=== PATIENT | male | born 2000 | race African-American/Black ===

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

== ENCOUNTER 2018-07-27 16:47 | Emergency (ER) | payer SELFPAY ==
[2018-07-27 17:21] VITALS: BP 124/72
[2018-07-27] MEDS ORDERED: AZITHROMYCIN 250 MG TABLET PO ONE (17:47)
[2018-07-27] MEDS ORDERED: CEFTRIAXONE INJ 250 MG VIAL IM ONE (17:47)
--- NOTE | 2018-07-27 17:53 | ER Document Report ---
HPI - HPI Time Seen by Provider: 07/27/18 17:38 Pain Level: 5 Notes: Patient is a 18-year-old male with no significant past medical history who presents to the emergency department complaining of burning with urination over the past 2 to 3 days and is sexually active. Denies drug allergies. He has not noticed any ulcers, discharge, or lesions/rash. He is eating and drinking without difficulty. He is having normal bowel movements. Denies any headache, fever, URI, sore throat, chest pain, palpitations, syncope, cough, shortness of breath, wheeze, dyspnea, abdominal pain, nausea/vomiting/diarrhea, urinary retention, or rash. - ROS Systems Reviewed and Negative: Yes All other systems reviewed and negative Past Medical History - Social History Smoking Status: Current Every Day Smoker Family History: Reviewed & Not Pertinent Pulmonary Medical History: Reports: Hx Asthma Renal/ Medical History: Denies: Hx Peritoneal Dialysis - Immunizations Immunizations up to date: Yes Hx Diphtheria, Pertussis, Tetanus Vaccination: Yes Vertical Provider Document - CONSTITUTIONAL Agree With Documented VS: Yes Notes: PHYSICAL EXAMINATION: GENERAL: Well-appearing, well-nourished and in no acute distress. LUNGS: Breath sounds clear to auscultation bilaterally and equal. No wheezes rales or rhonchi. HEART: Regular rate and rhythm without murmurs, rubs, gallops. ABDOMEN: Soft, nontender, nondistended abdomen. No guarding, no rebound. No masses appreciated. Normal bowel sounds present. No CVA tenderness bilaterally. : No obvious lesion, ulceration, or rash. No erythema or necrosis. No swelling. No obvious hernia or lymphadenopathy. + urethral discharge (white color). No testicular/penile tenderness to palp. No transverse lie. Cremasteric intact. Extremities: No cyanosis, clubbing, or edema b/l. NEUROLOGICAL: Normal speech, normal gait. PSYCH: Normal mood, normal affect. SKIN: Warm, Dry, normal turgor, no rashes or lesions noted. - INFECTION CONTROL TRAVEL OUTSIDE OF THE [place] IN LAST 30 DAYS: No Course - Re-evaluation Re-evalutation: 07/27/18 Patient is an afebrile, well-hydrated, 18-year-old male who presents with urethral discharge and dysuria, possible STD. Vitals are acceptable without significant tachycardia, tachypnea, or hypoxia. PE is otherwise unremarkable. Patient is nontoxic-appearing and is tolerating p.o. without difficultly. Chlamydia gonorrhea test pending. See urinalysis. Patient was given Zithromax and Rocephin. No further work-up warranted. Low suspicion/risk for acute appendicitis, bowel obstruction, acute cholecystitis, perforated diverticulitis, incarcerated hernia, pancreatitis, perforated ulcer, peritonitis, sepsis, testicular torsion, or other systemic emergent condition at this time. Patient is aware that his condition can change from initial presentation and he needs to monitor symptoms closely and seek medical attention if any acute changes. Conservative measures otherwise for symptoms. Recheck with PCM/health department in 3 to 5 days. Return to the ED with any worsening/concerning symptoms otherwise as reviewed in discharge. Patient is in agreement. - Vital Signs Vital signs: Temp Pulse Resp BP Pulse Ox 98.8 F 66 14 124/72 98 07/27/18 17:18 07/27/18 17:18 07/27/18 17:18 07/27/18 17:18 07/27/18 17:18 Discharge - Discharge Clinical Impression: Dysuria, Urethral discharge in male Condition: Stable Disposition: HOME, SELF-CARE Additional Instructions: Push fluids (i.e. water, cranberry juice) Proper hygenic technique Keep the skin clean Use condoms every time Tylenol/ibuprofen as needed Take medications as directed He should follow-up with the health department for complete STD testing F/u with your PCM/health department in 3-5 days for a recheck Consider consult with a Urologist for ongoing/worsening symptoms. Return to the ED with any worsening symptoms and/or development of fever, headache, chest pain, palpitations, syncope, shortness of breath, trouble breathing, abdominal pain, n/v/d, blood in stool/urine, loss of control of bowel/bladder, urinary retention, or other worsening symptoms that are concerning to you. Referrals: SHEREE BAUTISTA PA-C [NO LOCAL MD] - Follow up as needed [facility] [NO LOCAL MD] - Follow up in 3-5 days
[2018-07-27 18:10] LABS: APPEARANCE,URINE SLIGHTLY-CLOUDY; BILIRUBIN,URINE NEGATIVE (NEGATIVE); COLOR,URINE YELLOW; GLUCOSE, URINE NEGATIVE (NEGATIVE); KETONES,URINE NEGATIVE (NEGATIVE); LEUKOCYTE ESTERASE,URINE TRACE (NEGATIVE); NITRITE,URINE NEGATIVE (NEGATIVE); PROTEIN,URINE NEGATIVE (NEGATIVE); UROBILINOGEN,URINE NEGATIVE mg/dL (<2.0)
[2018-07-27 19:42] LABS: CHLAM PCR DETECTED (NOT DETECT); GON PCR NOT DETECTED (NOT DETECT)
== END 2018-07-27 18:21 | disposition home or self-care (01) ==
LOC: ER 16:47
DX: R30.0 Dysuria (principal); R36.9 Urethral discharge, unspecified; J45.909 Unspecified asthma, uncomplicated; F17.200 Nicotine dependence, unspecified, uncomplicated; Z20.2 Contact with and (suspected) exposure to infections with a predominantly sexual mode of transmission
CPT/HCPCS: 99283; 96372; 81001; 87491; 87591; J0696

== ENCOUNTER 2019-06-06 20:22 | Emergency (ER) | payer SELFPAY ==
--- NOTE | 2019-06-06 21:41 | ER Document Report ---
ED Medical Screen (RME) - General Chief Complaint: Doesn't Feel Right Stated Complaint: RIGHT SIDE OF BODY THROBBING Time Seen by Provider: 06/06/19 21:35 Notes: HPI: 18-year-old male who is otherwise healthy as far as he knows presenting for intermittent mxdn-vle-giffjig sensation right arm right leg that comes and goes over the last 2 weeks. Not accompanied by weakness. May last for 10 to 15 minutes at a time before resolving. No chest pain no shortness of breath no fever no recent illness no headache no vision change. No incontinence. I have greeted and performed a rapid initial assessment of this patient. A comprehensive ED assessment and evaluation of the patient, analysis of test results and completion of the medical decision making process will be conducted by additional ED providers PHYSICAL EXAMINATION: Strength equal 5/5 bilateral upper and lower extremities. Gait is normal. Alert and oriented x3. No nystagmus. Sensation appears intact bilateral upper extremities and lower extremities I have greeted and performed a rapid initial assessment of this patient. A comprehensive ED assessment and evaluation of the patient, analysis of test results and completion of medical decision making process will be conducted by an additional ED providers. TRAVEL OUTSIDE OF THE [place] IN LAST 30 DAYS: No - Related Data Allergies/Adverse Reactions: No Known Allergies Allergy (Verified 07/27/18 16:52) Past Medical History Pulmonary Medical History: Reports: Hx Asthma Renal/ Medical History: Denies: Hx Peritoneal Dialysis - Immunizations Immunizations up to date: Yes Hx Diphtheria, Pertussis, Tetanus Vaccination: Yes Physical Exam - Vital signs Vitals: Temp Pulse Resp BP Pulse Ox 98.7 F 104 H 18 142/85 H 99 06/06/19 20:06/06/19 20:28 06/06/19 20:06/06/19 20:28 06/06/19 20:28 Course - Vital Signs Vital signs: Temp Pulse Resp BP Pulse Ox 98.7 F 104 H 18 142/85 H 99 06/06/19 20:28 06/06/19 20:28 06/06/19 20:28 06/06/19 20:28 06/06/19 20:28
[2019-06-06 22:23] LABS: ABSOLUTE EOSINOPHILS # (AUTO) 0.1 10^3/uL (0.0-0.6); ABSOLUTE LYMPHOCYTES (AUTO) 1.7 10^3/uL (0.5-4.7); ABSOLUTE MONOCYTES (AUTO) 0.6 10^3/uL (0.1-1.4); ABSOLUTE NEUT (AUTO) 3.9 10^3/uL (1.7-8.2); BASOPHILS % (AUTO) 0.5 % (0-2); EOSINOPHILS % (AUTO) 2.1 % (0-6); HEMATOCRIT 49.1 % (37.9-51.0); HEMOGLOBIN 16.9 g/dL (13.5-17.0); MEAN CORPUSCULAR HGB CONC 34.4 g/dL (32.0-36.0); MEAN CORPUSCULAR VOLUME 81 fl (80-97); PLATELET COUNT 237 10^3/uL (150-450); RED BLOOD COUNT 6.03 10^6/uL (4.35-5.55); RED CELL DISTRIBUTION WIDTH 12.9 % (11.5-14.0); SEGMENTED NEUTROPHILS % (AUTO) 61.4 % (42-78); TOTAL CELLS COUNTED % (AUTO) 100 %; WHITE BLOOD COUNT 6.3 10^3/uL (4.0-10.5)
[2019-06-06 22:28] LABS: APPEARANCE,URINE CLEAR; BILIRUBIN,URINE NEGATIVE (NEGATIVE); COLOR,URINE YELLOW; GLUCOSE, URINE NEGATIVE (NEGATIVE); KETONES,URINE NEGATIVE (NEGATIVE); URINE SPECIFIC GRAVITY 1.025
[2019-06-06 22:29] LABS: LEUKOCYTE ESTERASE,URINE NEGATIVE (NEGATIVE); NITRITE,URINE NEGATIVE (NEGATIVE); PROTEIN,URINE 30 mg/dL (NEGATIVE); UROBILINOGEN,URINE NEGATIVE mg/dL (<2.0)
[2019-06-06 22:53] LABS: ALBUMIN 4.9 g/dL (3.5-5.0); ALKALINE PHOSPHATASE 100 U/L (38-126); ANION GAP 9 (5-19); ASPARTATE AMINO TRANSFERASE 34 U/L (17-59); BILIRUBIN,TOTAL 0.6 mg/dL (0.2-1.3); BLOOD UREA NITROGEN 9 mg/dL (7-20); CALCIUM 9.6 mg/dL (8.4-10.2); CARBON DIOXIDE 27 mmol/L (22-30); CHLORIDE 101 mmol/L (98-107); GLUCOSE 100 mg/dL (75-110); POTASSIUM 3.9 mmol/L (3.6-5.0); TOTAL PROTEIN 7.8 g/dL (6.3-8.2)
[2019-06-06 23:29] LABS: URINE AMPHETAMINES SCREEN NEGATIVE; URINE BARBITURATES SCREEN NEGATIVE; URINE BENZODIAZEPINES SCREEN NEGATIVE; URINE COCAINE SCREEN NEGATIVE; URINE METHADONE SCREEN NEGATIVE; URINE PHENCYCLIDINE SCREEN NEGATIVE
--- NOTE | 2019-06-06 23:29 | ER Document Report ---
ED General - General Chief Complaint: Doesn't Feel Right Stated Complaint: RIGHT SIDE OF BODY THROBBING Time Seen by Provider: 06/06/19 21:35 Notes: Patient is a 18-year-old male that comes emergency department for chief complaint of remittent tingling and occasionally pain sensation going down his right arm along the side and also he intermittently feels this at the knee and down his leg. He denies injury, he is left-handed. He denies chest pain, shortness of breath, neck pain, headache, dizziness, visual changes, or any other symptoms. He denies fever/chills, nausea/vomiting, diarrhea. He denies any current symptoms. He states symptoms seem random and are not very reproducible. He states his right knee has bothered him ever since he was a child after an injury. He denies any daily medications or diagnosed medical history. He denies recreational drugs. TRAVEL OUTSIDE OF THE [place] IN LAST 30 DAYS: No - Related Data Allergies/Adverse Reactions: No Known Allergies Allergy (Verified 07/27/18 16:52) Past Medical History - General Information source: Patient - Social History Smoking Status: Never Smoker Frequency of alcohol use: None Drug Abuse: None Lives with: Family Family History: Reviewed & Not Pertinent Patient has suicidal ideation: No Patient has homicidal ideation: No Pulmonary Medical History: Reports: Hx Asthma Renal/ Medical History: Denies: Hx Peritoneal Dialysis - Immunizations Immunizations up to date: Yes Hx Diphtheria, Pertussis, Tetanus Vaccination: Yes Review of Systems - Review of Systems Constitutional: No symptoms reported EENT: No symptoms reported Cardiovascular: No symptoms reported Respiratory: No symptoms reported Gastrointestinal: No symptoms reported Genitourinary: No symptoms reported Male Genitourinary: No symptoms reported Musculoskeletal: See HPI Skin: No symptoms reported Hematologic/Lymphatic: No symptoms reported Neurological/Psychological: See HPI Physical Exam - Vital signs Vitals: Temp Pulse Resp BP Pulse Ox 98.7 F 104 H 18 142/85 H 99 06/06/19 20:28 06/06/19 20:28 06/06/19 20:28 06/06/19 20:28 06/06/19 20:28 - Notes Notes: GENERAL: Alert, interacts well. No acute distress. HEAD: Normocephalic, atraumatic. EYES: Pupils equal, round, and reactive to light. Extraocular movements intact. ENT: Oral mucosa moist, tongue midline. Oropharynx unremarkable. Airway patent. Nares patent, sinuses non-tender, ear canals unremarkable, TM's intact. NECK: Full range of motion. Supple. Trachea midline. No lymphadenopathy. LUNGS: Clear to auscultation bilaterally, no wheezes, rales, or rhonchi. No respiratory distress. Non-tender chest wall. HEART: Regular rate and rhythm. No murmur ABDOMEN: Soft, non-tender. Non-distended. EXTREMITIES: Patient does wince with palpation in the area at the right posterior shoulder just posterior to the humeral head. However his range of motion at the shoulder is normal, normal strength, normal distal neurovascular exam. Patient also has some mild tenderness over the palpation of the inferior lateral aspect of the right knee with mild pain with movement. Ambulates normally. Normal distal neurovascular exam. No signs of trauma. No erythema, swelling, or signs of trauma. Skin is BACK: no cervical, thoracic, lumbar midline tenderness. No saddle anesthesia, normal distal neurovascular exam. Moves all extremities in full range of motion. NEUROLOGICAL: Alert and oriented x3. Normal speech. Cranial nerves II through XII grossly intact. Strength 5/5 in all extremities. PSYCH: Normal affect, normal mood. SKIN: Warm, dry, normal turgor. No rashes or lesions noted. Course - Re-evaluation Re-evalutation: Patient well-appearing, playing on his phone using his right hand when I evaluated him, he currently has no paresthesias or pain in either right hand or right knee. I could reproduce some symptoms with palpation and range of motion of the right knee but this was very mild. He also has very mild reproducible tenderness with palpation and movement of the posterior right shoulder. Patient stands and ambulates without any difficulty. Because he does not have any current symptoms I do not feel imaging is indicated. He has no neurological deficits, he has a normal neurological exam, and symptoms have been bothering him intermittently for 2 weeks. Very low suspicion of intracranial or intrathoracic etiology based on his lack of current symptoms and negative exam. Initially he was mildly tachycardic but he is not on my exam. Work-up from triage reviewed, CBC unremarkable, chemistry unremarkable, urinalysis shows mildly elevated specific gravity but is otherwise unremarkable. Patient has moist mucous membranes on exam and states he is hydrating well. I feel this is musculoskeletal based on his exam, work-up, evaluation. Discussed with patient. He states he just wanted to make sure "I do not have diabetes or something like that". He has no current complaints. Provided with muscle relaxers, placing on anti-inflammatories, discussed recommendations, follow-up, return precautions. Patient states understanding and agreement. Stable and well-appearing at time of discharge. - Vital Signs Vital signs: Temp Pulse Resp BP Pulse Ox 98.7 F 104 H 18 142/85 H 99 06/06/19 20:28 06/06/19 20:28 06/06/19 20:28 06/06/19 20:28 06/06/19 20:28 - Laboratory Result Diagrams: 06/06/19 22:00 06/06/19 22:00 Laboratory results interpreted by me: 06/06/19 06/06/19 22:00 22:00 RBC 6.03 H Urine Protein 30 H Urine Ascorbic Acid 20 H Discharge - Discharge Clinical Impression: Right leg pain, Paresthesia Right shoulder pain Qualifiers: Chronicity: acute Qualified Code(s): M25.511 - Pain in right shoulder Condition: Stable Disposition: HOME, SELF-CARE Additional Instructions: Your work-up does not show any concerning findings including no evidence of diabetes. Based on your evaluation this is reassuring and should simply resolve with time. I believe this is musculoskeletal. I recommend that you ice your shoulder and your knee 3-4 times a day, rest of both, take the anti-inflammatory as prescribed, take the muscle relaxer if needed especially at night. Follow-up with primary care for additional management if symptoms continue. Return if you worsen including developing severe pain, fever, numbness, severe headache, difficulty breathing, chest pain, or any other concerning symptoms. Prescriptions: Cyclobenzaprine HCl 1 - 2 tab PO Q8H PRN #14 tablet PRN Reason: Naproxen 500 mg PO BID PRN #14 tablet PRN Reason: Forms: Return to Work
[2019-06-06 23:38] LABS: URINE MARIJUANA (THC) SCREEN UNCONFIRMED POSITIVE
[2019-06-07 00:15] VITALS: BP 129/70
== END 2019-06-07 00:15 | disposition home or self-care (01) ==
LOC: ER 20:22
DX: M79.604 Pain in right leg (principal); R20.2 Paresthesia of skin; M25.511 Pain in right shoulder; J45.909 Unspecified asthma, uncomplicated
CPT/HCPCS: 36415; 80053; 80307; 81001; 85025; 99283